=== PATIENT | male | born 1990 | race Caucasian/White ===

== ENCOUNTER 2020-10-09 13:14 | Outpatient (RCR) | payer OTHER ==
[~2020-10-09 13:14] MED LIST: NAPR-243 PO
[2020-10-09 13:55] LABS: SEMEN VOLUME 3.6 ML (1.5-5.0)
== END 2021-01-07 | disposition home or self-care (01) ==
LOC: LAB 13:14
PROVIDERS: ATTEND Obstetrics & Gynecology
DX: N46.9 Male infertility, unspecified (principal)
CPT/HCPCS: 89320